=== PATIENT | female | born 1995 | race Caucasian/White ===

== ENCOUNTER → 2020-03-04 15:27 | Outpatient (CLI) | payer BC, SELFPAY ==
[2020-03-04 16:59] LABS: Coronavirus 19 IgG Antibody Negative (Negative); Coronavirus 19 IgM Antibody Negative (Negative)
== END ==
PROVIDERS: PCP Surgery; Visit Provider Surgery
DX: Z03.818 Encounter for observation for suspected exposure to other biological agents ruled out (principal)
CPT/HCPCS: 36415; 86328